=== PATIENT | female | born 1995 | race African-American/Black ===

== ENCOUNTER 2020-12-23 22:33 | Emergency (ER) | payer OTHER ==
[2020-12-24 01:20] VITALS: BP 120/84
== END 2020-12-24 01:20 | disposition home or self-care (01) ==
LOC: FSED 23:00
DX: O20.9 Hemorrhage in early pregnancy, unspecified (principal); O20.0 Threatened abortion
CPT/HCPCS: 36415; 76801; 80053; 81003; 84702; 85025; 99283